=== PATIENT | male | born 1985 | race Two or more races ===

== ENCOUNTER 2024-02-12 04:27 | Emergency (ER) | payer OTHER ==
[2024-02-12 04:42] VITALS: BP 144/103; PULSE 84; RESP 19; TEMP 98; BMI 31.4
[2024-02-12] MEDS ORDERED: DEXAMETHASONE SOD PHOSPHATE 10 MG/1 ML VIAL ONE (05:19)
[2024-02-12] MEDS: DEXAMETHASONE SOD PHOSPHATE 10 MG/1 ML VIAL IM ONE (05:24)
[2024-02-12] MEDS ORDERED: LIDOCAINE VISCOUS 2% ORAL/TOP 15 ML UNIT-DOSE CUP ONE (06:16)
[2024-02-12] MEDS: LIDOCAINE VISCOUS 2% ORAL/TOP 15 ML UNIT-DOSE CUP MM ONE (06:16)
== END 2024-02-12 07:03 | disposition home or self-care (01) ==
LOC: JER 04:27
PROC: 3E023GC Introduction of Other Therapeutic Substance into Muscle, Percutaneous Approach (ICD-10-PCS; principal; 2024-02-12)
DX: J02.0 Streptococcal pharyngitis (principal); R00.0 Tachycardia, unspecified
CPT/HCPCS: 87651; 99284-25; J1100